=== PATIENT | male | born 1955 | race Caucasian/White ===

== ENCOUNTER 2021-02-01 15:58 | Emergency (ER) | payer SELFPAY ==
[2021-02-01] VITALS (7 sets, daily range): BP systolic 136–166; BP diastolic 73–105; PULSE 96–110; RESP 17–20; TEMP 36.6–36.7; O2SAT 94–98
--- NOTE | 2021-02-01 16:23 | DI.RAD.S_ITS ---
PROCEDURE: XR CHEST 1V INDICATIONS: suspected sepsis TECHNIQUE: One view of the chest was acquired. COMPARISON: None. FINDINGS: Surgical changes and devices: None. Lungs and pleura: Lungs are clear. No pleural effusions or pneumothorax. Mediastinum: Mediastinal contours appear normal. Heart size is normal. Bones and chest wall: No suspicious bony lesions. Overlying soft tissues appear unremarkable. IMPRESSION: No acute infiltrate in the chest. Dictated by: Kendell Weinberg M.D. on 02/01/2021 at 16:49 Approved by: Kendell Weinberg M.D. on 02/01/2021 at 16:50
[2021-02-01] MEDS: SODIUM CHLORIDE 0.9% 1,000 ML 1000 ML IV (16:25)
[2021-02-01 16:30] LABS: Add Manual Diff / Slide Review NO; Basophils Absolute Auto 200 /uL (0-100); Basophils Percent Auto 0.9 % (0-2); Eosinophils Absolute Auto 1600 /uL (0-450); Eosinophils Percent Auto 8.6 % (2-4); Hematocrit 43.9 % (41-53); Hemoglobin 14.2 g/dL (13.5-17.5); Lymphocytes Absolute Auto 1900 /uL (1100-4500); Lymphocytes Percent Auto 10.3 % (25-40); Mean Corpuscular HGB Conc 32.3 % (30-36); Mean Corpuscular Hemoglobin 24.2 PG (26-34); Monocytes Absolute Auto 1400 /uL (0-900); Monocytes Percent Auto 7.2 % (3-14); Neutrophils Absolute Auto 13800 /uL (1500-7000); Red Blood Cell Count 5.85 X10^6/uL (4.5-5.9); Red Cell Distribution Width 19.5 % (11.6-14.8)
[2021-02-01 16:32] LABS: Platelet Count 1229 X10^3/uL (150-400)
[2021-02-01 16:41] LABS: Lactate (Lactic Acid) 1.8 mmol/L (0.7-2.1)
[2021-02-01 16:42] LABS: Alanine Aminotransferase 22 IU/L (<50); Albumin 3.6 g/dL (3.5-5.0); Albumin Globulin Ratio 1.3 (1.0-2.8); Alkaline Phosphatase 87 U/L (38-126); Aspartate Aminotransferase 34 IU/L (17-59); BUN Creatinine Ratio 16.9 (6-22); Bilirubin Total 0.6 mg/dL (0.2-1.3); Blood Urea Nitrogen 12 mg/dL (9-20); Calcium 8.7 mg/dL (8.4-10.2); Carbon Dioxide 23 mmol/L (22-32); Chloride 106 mmol/L (98-107); Estimated Glomerular Filt Rate > 60.0 mL/min (>60); Globulin 2.7 g/dL (1.7-4.1); Glucose 88 mg/dL (80-110); HEMOLYSIS < 15 (0-50); Lipase 80 U/L (23-300); Potassium 4.5 mmol/L (3.4-5.1); Sodium 138 mmol/L (137-145); Total Protein 6.3 g/dL (6.3-8.2)
[2021-02-01 16:59] LABS: Procalcitonin 0.05 ng/mL (<0.5)
--- NOTE | 2021-02-01 17:01 | ED.GENADULT ---
HPI - General Adult General Chief complaint: Fever Stated complaint: chills, no appetite, swollen/red hands Time Seen by Provider: 02/01/21 17:00 Source: patient and family (nephew) Mode of arrival: Ambulatory Limitations: no limitations History of Present Illness HPI narrative: This is a 65-year-old male with no known past medical history but has not been to see a physician in many years possibly a decades. Patient denies any major surgical interventions. He denies any known drug allergies. He does smoke, he drinks alcohol intermittently, he denies any illicit. He does live on [address]. Patient states that he has had a rash on his upper and lower extremities which has been increasing, he has had increasing swelling and redness and cracking of the skin which has resulted in some drainage and had just noted some changes on the anterior chest. He states the time frame for these changes has been over several months. He states that initially the skin changes appeared and then the swelling. Patient denies any fevers. He has had chills intermittently for several months. Patient denies any chest pain or shortness of breath. No nausea or vomiting. No other GI or urinary symptoms. Patient has not had any weight loss. Related Data Previous Rx's Medication Instructions Recorded cephalexin 500 mg PO Q6H 10 Days #40 cap 02/01/21 Allergies Allergy/AdvReac Type Severity Reaction Status Date / Time No Known Drug Allergies Allergy Verified 02/01/21 16:05 Review of Systems Review of Systems ROS Unobtainable: All systems reviewed & are unremarkable except as noted in HPI and below Patient History Social History Smoking Status: Current every day smoker Smoking Status: Current every day smoker Exam Narrative Exam Narrative: GEN: well nourished, well appearing male, alert and oriented x 3, patient appears to be in mild distress. HEENT: Atraumatic, pupils are equal round reactive to light, extraocular movements are intact, nares are clear. Throat is clear without any exudates, erythema, tonsillar enlargement or uvular deviation, patient does not have any mucosal involvement. No blistering. HEART: Regular rate and rhythm without murmur, clicks, rubs. LUNGS:Lungs clear to auscultation, no wheezes, rales, crackles, chest moves symmetrically, no tachypnea accessory muscle use. ABD:bowel sounds normal, soft, non-tender, no guarding, rebound, rigidity, no masses noted, no hepatosplenomegaly :No CVA tenderness MSCL: Non-tender, no muscle atrophy, Full range of motion NEURO:CN 2-12 intact, sensation normal SKIN: Patient has of macular coalescing a rash on his upper and lower extremities with 1 anterior lesion on his chest. There is hyperkeratosis, linear cracks with occasional serosanguineous drainage and erythematous discoloration. There is no petechiae or ecchymosis appreciated. The skin is possibly mildly warm to touch but not significantly different from his normal skin. Patient's does appear to have edema in his upper lower extremities in the area of rash but not elsewhere. The anterior chest portion is approximately 4 x 5 cm and is macular and raised and erythematous with similar hyperkeratosis. There is no blistering. Nikolsky's sign is negative. Initial Vital Signs Initial Vital Signs: Vital Signs Temperature 98.1 F 02/01/21 16:02 Pulse Rate 110 H 02/01/21 16:02 Respiratory Rate 20 02/01/21 16:02 Pulse Oximetry 97 02/01/21 16:02 Course Orders Ordered: ED Orders 02/01/21 16:20 Complete Blood Count AUTO DIFF Stat Comprehensive Metabolic Panel Stat Lactate (Lactic Acid) Stat Lipase Stat NT-proBNP (BNP-Adult 18+) Stat Procalcitonin Stat Troponin & CK Cardiac Panel Stat 02/01/21 16:23 XR chest 1V Stat EKG-12 Lead Stat RT Consult Eval and Treat Now 02/01/21 17:05 Blood Culture Stat 02/01/21 18:22 JAK2 Screen with Reflexes Stat Discontinued Medications Aspirin (Aspirin 81 Mg Chew Tab) 324 mg PO NOW ONE Stop: 02/01/21 19:11 Last Admin: 02/01/21 19:52 Dose: 324 mg Documented by: [email or web address] Cefazolin Sodium (Cephalexin 250 Mg Prepack) 1 bottle MISC SEEINSTR ONE Stop: 02/01/21 19:36 Last Admin: 02/01/21 19:55 Dose: 1 bottle Documented by: [email or web address] Sodium Chloride (Normal Saline 0.9%) 1,000 mls @ 1,000 mls/hr IV BOLUS ONE Stop: 02/01/21 17:22 Last Infusion: 02/01/21 18:03 Dose: 0 mls/hr Documented by: [email or web address] Admin: 02/01/21 16:25 Dose: 1,000 mls/hr Documented by: [email or web address] Clindamycin Phosphate (Cleocin) 900 mg in 50 mls @ 50 mls/hr IV NOW ONE Stop: 02/01/21 18:01 Last Infusion: 02/01/21 18:53 Dose: 0 mls/hr Documented by: Admin: 02/01/21 17:26 Dose: 50 mls/hr Documented by: [email or web address] Consultations Consultation #1: Dr. 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 Plan for asa daily until see's oncology. Would be appropriate to cover for infection but worried more about a cutaneous involvement with CML. Jax2 panel and leukemia comp panel ordered as per oncology. And patient to be seen AKHIL in office and to call first thing in the morning. Vital Signs Vital signs: Vital Signs - 8 hr 02/01/21 16:02 02/01/21 17:24 02/01/21 18:58 Temperature 98.1 F 97.8 F Pulse Rate 110 H 99 H 99 H Respiratory Rate 20 17 Blood Pressure 136/73 Pulse Oximetry 97 97 98 02/01/21 19:00 02/01/21 19:02 02/01/21 19:06 Temperature 97.9 F Pulse Rate 96 H 99 H Respiratory Rate Blood Pressure 143/78 H Pulse Oximetry 97 95 02/01/21 20:07 Temperature Pulse Rate 105 H Respiratory Rate 18 Blood Pressure 166/105 H Pulse Oximetry 94 Medical Decision Making Lab Data Lab results reviewed: Yes I reviewed the patient's lab results. Result diagrams: 02/01/21 16:20 02/01/21 16:20 Labs: Lab Results 02/01/21 02/01/21 02/01/21 Range/Units 16:20 16:20 16:20 WBC 19.0 H (4.5-11.0) X10^3/uL RBC 5.85 (4.5-5.9) X10^6/uL Hgb 14.2 (13.5-17.5) g/dL Hct 43.9 (41-53) % MCV 75.0 L (80-100) fL MCH 24.2 L (26-34) PG MCHC 32.3 (30-36) % RDW 19.5 H (11.6-14.8) % Plt Count 1229 H* (150-400) X10^3/uL Neut % (Auto) 73.0 (50-75) % Lymph % (Auto) 10.3 L (25-40) % [place] % (Auto) 7.2 (3-14) % Eos % (Auto) 8.6 H (2-4) % Baso % (Auto) 0.9 (0-2) % Neut # (Auto) 60646 H (3899-6927) /uL Lymph # (Auto) 1900 (6852-1559) /uL [place] # (Auto) 1400 H (0-900) /uL Eos # (Auto) 1600 H (0-450) /uL Baso # (Auto) 200 H (0-100) /uL Platelet Estimate Increased on smear Plt Morphology Comment 1+ large platelets RBC Morphology Normal morphology Sodium 138 (137-145) mmol/L Potassium 4.5 (3.4-5.1) mmol/L Chloride 106 (98-107) mmol/L Carbon Dioxide 23 (22-32) mmol/L BUN 12 (9-20) mg/dL Creatinine 0.71 (0.66-1.25) mg/dL Estimated GFR > 60.0 (>60) mL/min BUN/Creatinine Ratio 16.9 (6-22) Glucose 88 (80-110) mg/dL Lactate 1.8 (0.7-2.1) mmol/L Calcium 8.7 (8.4-10.2) mg/dL Total Bilirubin 0.6 (0.2-1.3) mg/dL AST 34 (17-59) IU/L ALT 22 (<50) IU/L Alkaline Phosphatase 87 (38-126) U/L Total Creatine Kinase (55-170) U/L CK-MB (CK-2) CK-MB (CK-2) Rel Index Troponin I (0.01-0.034) ng/mL NT-Pro-B Natriuret Pep (<125) pg/mL Total Protein 6.3 (6.3-8.2) g/dL Albumin 3.6 (3.5-5.0) g/dL Globulin 2.7 (1.7-4.1) g/dL Albumin/Globulin Ratio 1.3 (1.0-2.8) Lipase 80 (23-300) U/L Procalcitonin 0.05 (<0.5) ng/mL 02/01/ Range/Units 16:20 WBC (4.5-11.0) X10^3/uL RBC (4.5-5.9) X10^6/uL Hgb (13.5-17.5) g/dL Hct (41-53) % MCV (80-100) fL MCH (26-34) PG MCHC (30-36) % RDW (11.6-14.8) % Plt Count (150-400) X10^3/uL Neut % (Auto) (50-75) % Lymph % (Auto) (25-40) % [place] % (Auto) (3-14) % Eos % (Auto) (2-4) % Baso % (Auto) (0-2) % Neut # (Auto) (9317-0564) /uL Lymph # (Auto) (2738-9041) /uL [place] # (Auto) (0-900) /uL Eos # (Auto) (0-450) /uL Baso # (Auto) (0-100) /uL Platelet Estimate Plt Morphology Comment RBC Morphology Sodium (137-145) mmol/L Potassium (3.4-5.1) mmol/L Chloride (98-107) mmol/L Carbon Dioxide (22-32) mmol/L BUN (9-20) mg/dL Creatinine (0.66-1.25) mg/dL Estimated GFR (>60) mL/min BUN/Creatinine Ratio (6-22) Glucose (80-110) mg/dL Lactate (0.7-2.1) mmol/L Calcium (8.4-10.2) mg/dL Total Bilirubin (0.2-1.3) mg/dL AST (17-59) IU/L ALT (<50) IU/L Alkaline Phosphatase (38-126) U/L Total Creatine Kinase 64 (55-170) U/L CK-MB (CK-2) TNP CK-MB (CK-2) Rel Index TNP Troponin I < 0.012 (0.01-0.034) ng/mL NT-Pro-B Natriuret Pep 348 H (<125) pg/mL Total Protein (6.3-8.2) g/dL Albumin (3.5-5.0) g/dL Globulin (1.7-4.1) g/dL Albumin/Globulin Ratio (1.0-2.8) Lipase (23-300) U/L Procalcitonin (<0.5) ng/mL Imaging Data Chest x-ray: Radiologist's Impression: [address] [address]NPys ReportSigned Patient: Devin Smith WMR#: [id number]: [id number]:[id number]/Sex: 65 / MDate of Service: 02/01/21Loc: EDAccession Number: [id number] Procedure: XR chest 1V Ordering Provider: Michell Solitario D.O. PROCEDURE: XR CHEST 1V INDICATIONS: suspected sepsis TECHNIQUE: One view of the chest was acquired. COMPARISON: None. FINDINGS: Surgical changes and devices: None. Lungs and pleura: Lungs are clear. No pleural effusions or pneumothorax. Mediastinum: Mediastinal contours appear normal. Heart size is normal. Bones and chest wall: No suspicious bony lesions. Overlying soft tissues appear unremarkable. IMPRESSION: No acute infiltrate in the chest. Dictated by: Kendell Weinberg M.D. on 02/01/2021 at 16:49 Approved by: Kendell Weinberg M.D. on 02/01/2021 at 16:50 ECG Data Attestation: I personally reviewed and interpreted this ECG as follows: Interpretation: Sinus rhythm right axis deviation. Rate of 99, ND 162, QRS 88, QTC of 441. MDM Narrative Medical decision making narrative: Patient's case was discussed with oncology. He does have a rash in his upper lower extremities which has a very atypical pattern for cellulitis and does not appear to be chronic venous stasis changes is also on his upper extremities with 1 patch on his anterior chest. Patient has not started any new medications, he has not had any recent antibiotics, he does not have any known medical history but has not seen a physician in many years. Patient has a significant leukocytosis and thrombocytosis and after discussion with Oncology they are concerned about possible CML and this may be a cutaneous manifestation. Patient is to see Oncology tomorrow. Was given oral antibiotic for possible superimposed infection on top of his rash. Patient was asked return shortly if he has any worsening symptoms or develops fevers. Or if he has any difficulty with short-term follow-up. Oncology does not recommend starting hydroxyurea the department they will see him 1st. We did add some confirmatory testing for send out labs that are currently pending. They did ask that patient could start aspirin daily and he received fluids in the department. Discharge Plan Departure Patient Disposition: Home Clinical Impression: Thrombocytosis, Leukocytosis, Rash and other nonspecific skin eruption Activity Restrictions/Additional Instructions: Your labs today are concerning for changes to your bone marrow that are not just infection. Call the hematology/oncology office after 9am for follow up tomorrow. You have labs that are pending that are send out labs. Let them know you were told to be seen shortly by Dr. Arauz or one of his partners in the next 24 hours. If you have any difficulty being seen or getting an appointment. Call the ER for assistance and we can talk with the oncology team. Take antibiotics until gone, you may have an underlying infection. Prescription to [facility] [address] [place] [address]. Please return for fevers greater 100.4 F, new chest pain, shortness of breath, persistent vomiting, rapidly worsening swelling in the extremities, rapidly worsening rash, or other new or concerning symptoms. Prescriptions: New cephalexin 500 mg capsule 500 mg PO Q6H 10 Days Qty: 40 RF: 0 Referrals: Toni Arauz MD [Physician] - Ramesh George MD [Primary Care Provider] -
[2021-02-01 17:07] LABS: Platelet Estimate Increased on smear; RBC Morphology Normal Morphology
[2021-02-01 17:11] LABS: Creatine Kinase 64 U/L (55-170)
[2021-02-01 17:25] LABS: NT-proBNP (BNP-Adult 18+) 348 pg/mL (<125); Troponin I < 0.012 ng/mL (0.01-0.034)
[2021-02-01] MEDS: CLINDAMYCIN 900 MG/50 ML PIGGYBACK 50 MG IV (17:26)
[2021-02-01] MEDS: ASPIRIN 81 MG CHEW TAB 324 MG PO (19:52)
[2021-02-01] MEDS: cephALEXin 250 MG PREPACK 1 BOTTLE MISC (19:55)
--- NOTE | 2021-02-03 14:30 | CM.SWNOTE ---
SHAMPOO PERSON Note ED provider Dr. Solitario requests that SHAMPOO PERSON f/u with patient after their d/c on 02/01/21. Patient is 65 y/o male presents to the ED with chills, no appetite and swollen/ red hands. Per MD, patient has atypical pattern of ceullutilis, patient has not seen physician in several years, and patient has a significan leukocytosis and thrombocytosis. MD reports concern for CML after consulting with onocology. Patient was referred to f/u with oncology. After d/c it was reported that patient was unable to f/u with oncology. SHAMPOO PERSON calls patient. Patient reports he is taking his antibiotic medication, resting and wants to finish his medication before moving forward. Patient states he understands that he needs a referral for oncology from PCP. Dr. Ramesh George. Patient understands that there is a concern with his blood. Patient states he does not ahve insurance and does not have money. SHAMPOO PERSON discusses medicare and medicaid. SHAMPOO PERSON states that SHAMPOO PERSON with contact [facility] to support patient in signing up for medicaid, patient indicates agreement and understanding. Patient states he lives in [place] alone and cares for the family property. Patient states that his nephew that lives in [place] was helpful the other day but he does not typically assist patient. Patient gives consent for SHAMPOO PERSON to contact patient's sister Sue. SHAMPOO PERSON offerers to schedule appt with patient's PCP and patient declines and states he will schedule appt after he heals, rests and finishes his antibiotics. Patient declines further assistance from SHAMPOO PERSON. SHAMPOO PERSON calls patient's sister Sue, it is is reported that she resides in [place]. Sue reports her awareness of patient's current status and that patient is in need of medical attention. Sue endorses that she is aware that patient does not have insurance. Sue states that patient does not have social security and chooses not to. SHAMPOO PERSON states that with SS it may be a barrier to getting Medicare. SHAMPOO PERSON states that SHAMPOO PERSON has contacted [facility] to support patient in signing up with medicaid. SHAMPOO PERSON encourages Sue to f/u with patient regarding this and needed medical f/u with PCP for referral for oncology and specialists. Sue indicates agreement and understanding. Sue states that patient has not been to the doctor in over 20 years and [place] Sue states that when patient had a lung infection in the past, Health [facility] Human [facility] assisted with patient's lack of insurance. Sue reports that patient does not have any friends or family that live near by that could support him. Sue states she will make efforts to visit patient more and check in with him and asks SHAMPOO PERSON to contact patient again. SHAMPOO PERSON contacts patient once more and patient declines SHAMPOO PERSON's assistance with getting a PCP appt, patient states he will schedule appt after his antibiotics. Plan: patient to f/u with PCP for needed referrals, [facility] to f/u with patient regarding Medicaid and patient's sister to further support patient as needed JONATHAN Moore
== END 2021-02-01 20:26 | disposition home or self-care (01) ==
PROVIDERS: Emergency Provider Emergency Medicine; Family Provider Family Medicine; PCP Family Medicine
DX: D47.3 Essential (hemorrhagic) thrombocythemia (principal); D72.829 Elevated white blood cell count, unspecified; R21 Rash and other nonspecific skin eruption
CPT/HCPCS: 36415; 71045; 80053; 81270; 82550; 83605; 83690; 83880; 84145; 84484; 85025; 87040; 93005; 93010; 96361; 96365; 99284